=== PATIENT | female | born 1985 | race Two or more races ===

== ENCOUNTER 2017-01-08 22:17 | Emergency (ER) | payer MEDICAID ==
[~2017-01-08] VITALS: Ht 162.6 cm; Wt 54.4 kg
[2017-01-08 22:45] LABS: Basophils # (auto) 0.1 uL; Basophils % (auto) 0.6 % (0.0-2.0); CONDITION Y; Eosinophils # (auto) 0.2 uL; Eosinophils % (auto) 2.1 % (0.0-7.0); Hematocrit 35.7 % (36.0-46.0); Hemoglobin 11.9 g/dL (12.2-16.2); Lymphocytes % (auto) 38.7 % (10.0-50.0); Mean Corpuscular Hemoglobin 30.2 pg (28.0-32.0); Mean Corpuscular Hgb Conc. 33.3 g/dL (32.0-36.0); Mean Corpuscular Volume 90.6 fL (80.0-100.0); Mean Platelet Volume 8.7 fL (7.4-10.4); Monocytes # (auto) 0.7 uL; Monocytes % (auto) 7.2 % (0.0-12.0); Neutrophils # (auto) 5.4 uL; Neutrophils % (auto) 51.4 % (37.0-80.0); Platelet Count (auto) 262 10^3/uL (140-450); White Blood Cell 10.4 10^3/uL (4.4-10.8)
[2017-01-08 23:03] LABS: Albumin 3.6 g/dL (3.4-5.0); Anion Gap 10 (5-15); BUN/Creatinine Ratio 13.1; Blood Urea Nitrogen 11 mg/dL (7-18); Calcium 8.4 mg/dL (8.5-10.1); Carbon Dioxide 23 mmol/L (21-32); Chloride 115 mmol/L (98-107); GFR African American 102 mL/min; GFR Non-African American 84 mL/min; Glucose 97 mg/dL (74-106); Magnesium 2.4 mg/dL (1.6-2.6); Potassium 3.5 mmol/L (3.5-5.1); Sodium 148 mmol/L (136-145)
[2017-01-08 23:12] LABS: INR 0.95 (0.9-1.15); Prothrombin Time 10.4 sec (9.37-12.3)
[2017-01-08 23:15] LABS: Alkaline Phosphatase 61 U/L (45-117); Aspartate Aminotransferase 14 U/L (15-37); Bilirubin, Total 0.2 mg/dL (0.2-1.0); Total Protein 7.2 g/dL (6.4-8.2)
[2017-01-08 23:33] LABS: B-Type Natriuretic Peptide 11.66 pg/mL (0-100)
[2017-01-08 23:40] LABS: Temperature: 23.1 C (20.0-25.0)
[2017-01-09 00:19] LABS: Urine Bilirubin Negative (Negative); Urine Color Yellow (Yellow); Urine Glucose Normal (Normal); Urine Ketone Negative (Negative); Urine Nitrite Negative (Negative); Urine RBC 2 /hpf (0 - 4); Urine Squamous Epithelial Cell FEW /hpf (<5); Urine Urobilinogen Normal (Negative)
[2017-01-09 00:20] LABS: Urine Blood 1+ /uL (Negative)
[2017-01-09 08:05] VITALS: BP 98/74
== END 2017-01-09 08:29 | disposition home or self-care (01) ==
LOC: ER 22:18
DX: R06.02 Shortness of breath (principal); E11.9 Type 2 diabetes mellitus without complications; N39.0 Urinary tract infection, site not specified; Z98.2 Presence of cerebrospinal fluid drainage device; Z85.841 Personal history of malignant neoplasm of brain
CPT/HCPCS: 36415; 70450; 71020; 80053; 80307; 81001; 83735; 83880; 84443; 84484; 84702; 85025; 85379; 85610; 85730; 93005

== ENCOUNTER 2018-06-04 11:00 | Emergency (ER) | payer MEDICAID ==
[~2018-06-04] VITALS: Ht 165.1 cm; Wt 53.1 kg
[2018-06-04] MEDS ORDERED: ACETAMINOPHEN 500 MG TAB PO ONE (11:15)
[2018-06-04 11:39] LABS: Urine Bacteria NONE SEEN /hpf (None Seen); Urine Blood 2+ /uL (Negative); Urine Mucus FEW (None Seen); Urine Specific Gravity 1.009 (1.001-1.035); Urine WBC 2 /hpf (0 - 5)
[2018-06-04 12:09] LABS: Basophils # (auto) 0 uL; Basophils % (auto) 0.4 % (0.0-2.0); Eosinophils # (auto) 0.1 uL; Eosinophils % (auto) 0.5 % (0.0-7.0); Hematocrit 43.8 % (36.0-46.0); Hemoglobin 14.7 g/dL (12.2-16.2); Lymphocytes % (auto) 17.8 % (10.0-50.0); Mean Corpuscular Hemoglobin 30.4 pg (28.0-32.0); Mean Corpuscular Hgb Conc. 33.5 g/dL (32.0-36.0); Mean Corpuscular Volume 90.7 fL (80.0-100.0); Monocytes # (auto) 1.2 uL; Neutrophils # (auto) 7.9 uL; Neutrophils % (auto) 70.3 % (37.0-80.0); Platelet Count (auto) 247 10^3/uL (140-450); Red Blood Cells 4.83 10^6/uL (4.0-5.20); Red Cell Distribution Width 14.2 % (11.8-14.3); White Blood Cell 11.3 10^3/uL (4.4-10.8)
[2018-06-04 12:31] LABS: Albumin 3.9 g/dL (3.4-5.0); Calcium 8.7 mg/dL (8.5-10.1); Potassium 3.5 mmol/L (3.5-5.1)
[2018-06-04 12:35] LABS: BUN/Creatinine Ratio 15.8; Bilirubin, Total 0.7 mg/dL (0.2-1.0); Total Protein 8.1 g/dL (6.4-8.2)
[2018-06-04] MEDS ORDERED: SODIUM CHLORIDE 0.9% 1,000 ML IVB ONE (12:35)
[2018-06-04] MEDS ORDERED: cefTRIAXone 1GM/50ML D5W 50 ML IV ONE (12:45)
[2018-06-04 15:30] VITALS: BP 89/53
== END 2018-06-04 16:14 | disposition home or self-care (01) ==
LOC: ER 11:00
DX: R50.9 Fever, unspecified (principal); N39.0 Urinary tract infection, site not specified; E11.22 Type 2 diabetes mellitus with diabetic chronic kidney disease; N18.3 Chronic kidney disease, stage 3 (moderate); Z85.841 Personal history of malignant neoplasm of brain; Z32.02 Encounter for pregnancy test, result negative
CPT/HCPCS: 36415; 71046; 80053; 81001; 81025; 83605; 85025; 87040; 96365; 99284; J0696; J7030

== ENCOUNTER 2020-12-30 10:19 | Emergency (ER) | payer MEDICAID ==
[~2020-12-30] VITALS: Ht 162.6 cm; Wt 49.9 kg
[2020-12-30 12:55] VITALS: BP 109/52
[2020-12-30] MEDS ORDERED: ACETAMINOPHEN/CODEINE#3 (300/30mg) TAB PO ONE (14:15)
== END 2020-12-30 14:46 | disposition home or self-care (01) ==
LOC: ER 10:19
DX: G51.0 Bell's palsy (principal)
CPT/HCPCS: 70486

== ENCOUNTER 2021-09-05 14:00 | Outpatient (CLI) | payer MEDICAID ==
[~2021-09-05] VITALS: Ht 162.6 cm; Wt 54.4 kg
[2021-09-05 14:35] LABS: Basophils # (auto) 0.1 10 ^3/uL (0-0.2); Basophils % (auto) 0.9 % (0.0-2.0); Eosinophils # (auto) 0.2 10 ^3/uL (0-0.8); Eosinophils % (auto) 2.6 % (0.0-7.0); Hematocrit 37.5 % (36.0-46.0); Hemoglobin 12.7 g/dL (12.2-16.2); Lymphocytes # (auto) 2.9 10 ^3/uL (0.4-5.4); Mean Corpuscular Hemoglobin 30.5 pg (28.0-32.0); Mean Corpuscular Volume 89.8 fL (80.0-100.0); Monocytes # (auto) 0.6 10 ^3/uL (0-1.3); Monocytes % (auto) 8.2 % (0.0-12.0); Neutrophils % (auto) 51.3 % (37.0-80.0); Nucleated Red Blood Cells % 0.1 %; Red Blood Cells 4.18 10^6/uL (4.0-5.20); Red Cell Distribution Width 13.1 % (11.8-14.3); White Blood Cell 7.9 10^3/uL (4.4-10.8)
[2021-09-05 14:42] LABS: Potassium 3.9 mmol/L (3.5-5.1)
[2021-09-05 14:46] LABS: Albumin 3.8 g/dL (3.4-5.0); BUN/Creatinine Ratio 17.6; Calcium 9.2 mg/dL (8.5-10.1)
[2021-09-05 14:49] LABS: Bilirubin, Total 0.3 mg/dL (0.2-1.0); Total Protein 7.5 g/dL (6.4-8.2)
[2021-09-05 15:03] LABS: INR 1.01 (0.9-1.15); Partial Thromboplastin Time 26.3 sec (23.6-33.0)
[2021-09-08] MEDS ORDERED: HYDR5TAB PO (08:33)
[2021-09-08] MEDS ORDERED: [UNRECOGNIZED DRUG - CODE] PO (08:33)
[2021-09-08] MEDS ORDERED: LEVO88TA4 PO (08:33)
== END 2021-09-05 14:30 | disposition home or self-care (01) ==
LOC: LAB 14:00 → EDSTATUS 09-10 09:22
PROVIDERS: ATTEND Internal Medicine Gastroenterology
DX: U07.1 COVID-19 (principal); Z01.812 Encounter for preprocedural laboratory examination; K21.9 Gastro-esophageal reflux disease without esophagitis; E03.9 Hypothyroidism, unspecified
CPT/HCPCS: 36415; 80053; 85025; 85610; 85730; U0003

== ENCOUNTER → 2021-10-15 | Day surgery (SDC) | payer MEDICAID ==
[2021-10-13 12:30] LABS: Basophils # (auto) 0.1 10 ^3/uL (0-0.2); Basophils % (auto) 0.7 % (0.0-2.0); Eosinophils # (auto) 0.1 10 ^3/uL (0-0.8); Eosinophils % (auto) 1.4 % (0.0-7.0); Hematocrit 37.4 % (36.0-46.0); Hemoglobin 12.7 g/dL (12.2-16.2); Lymphocytes # (auto) 2.4 10 ^3/uL (0.4-5.4); Lymphocytes % (auto) 32.3 % (10.0-50.0); Mean Corpuscular Hemoglobin 29.9 pg (28.0-32.0); Mean Corpuscular Volume 87.9 fL (80.0-100.0); Monocytes # (auto) 0.4 10 ^3/uL (0-1.3); Monocytes % (auto) 4.8 % (0.0-12.0); Neutrophils # (auto) 4.6 10 ^3/uL (1.6-8.6); Neutrophils % (auto) 60.8 % (37.0-80.0); Red Blood Cells 4.25 10^6/uL (4.0-5.20); Red Cell Distribution Width 13.4 % (11.8-14.3); White Blood Cell 7.5 10^3/uL (4.4-10.8)
[2021-10-13 12:44] LABS: Potassium 3.7 mmol/L (3.5-5.1)
[2021-10-13 12:46] LABS: Partial Thromboplastin Time 27.1 sec (23.6-33.0)
[2021-10-13 12:52] LABS: Albumin 3.6 g/dL (3.4-5.0); BUN/Creatinine Ratio 15.5; Bilirubin, Total 0.4 mg/dL (0.2-1.0); Calcium 9.1 mg/dL (8.5-10.1); Total Protein 7.3 g/dL (6.4-8.2)
[~2021-10-15] VITALS: Ht 162.6 cm; Wt 54.4 kg
[~2021-10-15] MED LIST: HYDR5TAB PO; LEVO88TA4 PO; LIDOCAINE VISCOUS 2% 15ML UD ONE; MIDAZOLAM HCL 5 MG/ML-1ML VIAL ONE; [UNRECOGNIZED DRUG - CODE] PO; fentaNYL CITRATE 100 MCG/2 ML VL ONE
[2021-10-15] MEDS: diphenhdrAMINE HCL 50 MG/1 ML VL ONE ×2 (13:01→13:04)
[2021-10-15 13:50] VITALS: BP 91/59
== END | disposition home or self-care (01) ==
LOC: GI 12:34
PROVIDERS: ATTEND Internal Medicine Gastroenterology
DX: R10.13 Epigastric pain (principal); K21.00 Gastro-esophageal reflux disease with esophagitis, without bleeding; K44.9 Diaphragmatic hernia without obstruction or gangrene; K29.50 Unspecified chronic gastritis without bleeding; K22.70 Barrett's esophagus without dysplasia; K29.90 Gastroduodenitis, unspecified, without bleeding; K31.89 Other diseases of stomach and duodenum; E03.9 Hypothyroidism, unspecified; Z90.49 Acquired absence of other specified parts of digestive tract; Z98.890 Other specified postprocedural states; Z79.899 Other long term (current) drug therapy; Z83.3 Family history of diabetes mellitus; Z20.822 Contact with and (suspected) exposure to COVID-19
CPT/HCPCS: 36415; 43239; 80053; 81025; 82962; 84702; 85025; 85610; 85730; 88305; 88312; 88342; J1200; J2250; J3010; J7030; U0003; 99152

== ENCOUNTER → 2022-04-21 | Outpatient (CLI) | payer MEDICAID ==
[~2022-04-21] MED LIST changes: -LIDOCAINE VISCOUS 2% 15ML UD ONE; -MIDAZOLAM HCL 5 MG/ML-1ML VIAL ONE; -fentaNYL CITRATE 100 MCG/2 ML VL ONE
[2022-04-21 08:52] LABS: Basophils # (auto) 0.1 10 ^3/uL (0-0.2); Basophils % (auto) 0.7 % (0.0-2.0); Eosinophils # (auto) 0.2 10 ^3/uL (0-0.8); Eosinophils % (auto) 2.2 % (0.0-7.0); Hematocrit 37.8 % (36.0-46.0); Hemoglobin 12.6 g/dL (12.2-16.2); Lymphocytes # (auto) 2.8 10 ^3/uL (0.4-5.4); Lymphocytes % (auto) 29.4 % (10.0-50.0); Mean Corpuscular Hemoglobin 30.3 pg (28.0-32.0); Mean Corpuscular Hgb Conc. 33.2 g/dL (32.0-36.0); Mean Corpuscular Volume 91.2 fL (80.0-100.0); Monocytes # (auto) 0.7 10 ^3/uL (0-1.3); Monocytes % (auto) 7.2 % (0.0-12.0); Neutrophils # (auto) 5.7 10 ^3/uL (1.6-8.6); Neutrophils % (auto) 60.5 % (37.0-80.0); Red Blood Cells 4.14 10^6/uL (4.0-5.20); Red Cell Distribution Width 13.9 % (11.8-14.3); White Blood Cell 9.3 10^3/uL (4.4-10.8)
[2022-04-21 09:11] LABS: Albumin 3.8 g/dL (3.4-5.0); Calcium 8.8 mg/dL (8.5-10.1); Potassium 4.1 mmol/L (3.5-5.1)
[2022-04-21 09:15] LABS: BUN/Creatinine Ratio 15.9; Bilirubin, Total 0.6 mg/dL (0.2-1.0); Total Protein 7.6 g/dL (6.4-8.2)
== END | disposition home or self-care (01) ==
LOC: LAB 08:26
PROVIDERS: ATTEND Internal Medicine
DX: E23.0 Hypopituitarism (principal); M35.00 Sjogren syndrome, unspecified
CPT/HCPCS: 36415; 80053; 85025; 85652

== ENCOUNTER → 2022-06-08 | Outpatient (CLI) | payer MEDICAID ==
[2022-06-08 10:41] LABS: Albumin 3.8 g/dL (3.4-5.0); Basophils # (auto) 0.1 10 ^3/uL (0-0.2); Basophils % (auto) 0.9 % (0.0-2.0); Calcium 9.6 mg/dL (8.5-10.1); Eosinophils # (auto) 0.2 10 ^3/uL (0-0.8); Hematocrit 37.7 % (36.0-46.0); Hemoglobin 12.8 g/dL (12.2-16.2); Lymphocytes # (auto) 2.3 10 ^3/uL (0.4-5.4); Lymphocytes % (auto) 28.8 % (10.0-50.0); Mean Corpuscular Hemoglobin 30.6 pg (28.0-32.0); Mean Corpuscular Hgb Conc. 34.1 g/dL (32.0-36.0); Mean Corpuscular Volume 89.7 fL (80.0-100.0); Monocytes # (auto) 0.4 10 ^3/uL (0-1.3); Monocytes % (auto) 4.8 % (0.0-12.0); Neutrophils # (auto) 5.1 10 ^3/uL (1.6-8.6); Neutrophils % (auto) 63.5 % (37.0-80.0); Nucleated Red Blood Cells % 0.1 %; Red Cell Distribution Width 13.7 % (11.8-14.3)
[2022-06-08 10:53] LABS: BUN/Creatinine Ratio 16.9; Bilirubin, Total 0.2 mg/dL (0.2-1.0); Total Protein 7.5 g/dL (6.4-8.2)
== END | disposition home or self-care (01) ==
LOC: LAB 09:53
PROVIDERS: ATTEND Internal Medicine Endocrinology, Diabetes & Metabolism
DX: E23.0 Hypopituitarism (principal); D64.9 Anemia, unspecified
CPT/HCPCS: 36415; 80053; 84439; 85025

== ENCOUNTER 2024-12-18 07:20 | Outpatient (CLI) | payer MEDICAID ==
[~2024-12-18 07:20] MED LIST changes: +DESM0.2T17 PO; -[UNRECOGNIZED DRUG - CODE] PO
[2024-12-18 07:43] LABS: Urine Bacteria None Seen /hpf (None Seen)
[2024-12-18 08:00] LABS: Basophils # (auto) 0.1 10 ^3/uL (0-0.2); Eosinophils # (auto) 0.1 10 ^3/uL (0-0.8); Eosinophils % (auto) 1.9 % (0.0-7.0); Hematocrit 37.1 % (36.0-46.0); Hemoglobin 12.7 g/dL (12.2-16.2); Lymphocytes # (auto) 3.1 10 ^3/uL (0.4-5.4); Mean Corpuscular Hemoglobin 30.2 pg (28.0-32.0); Mean Corpuscular Hgb Conc. 34.3 g/dL (32.0-36.0); Mean Corpuscular Volume 88.2 fL (80.0-100.0); Monocytes # (auto) 0.5 10 ^3/uL (0-1.3); Monocytes % (auto) 6.1 % (0.0-12.0); Neutrophils # (auto) 4.2 10 ^3/uL (1.6-8.6); Platelet Count (auto) 236 10^3/uL (140-450); Red Blood Cells 4.21 10^6/uL (4.0-5.20); Red Cell Distribution Width 13.8 % (11.8-14.3)
[2024-12-18 08:07] LABS: Urine Blood 2+ /uL (Negative); Urine Clarity Clear (Clear); Urine Color Light-Yellow (Yellow); Urine Protein, UAD Negative (Negative); Urine Specific Gravity 1.016 (1.001-1.035); Urine Squamous Epithelial Cell FEW /hpf (<5); Urine Urobilinogen Normal (Negative); Urine WBC 3 /HPF (0-5); Urine pH 5.5 (5.0-9.0)
[2024-12-18 08:45] LABS: Alanine Aminotransferase 18 U/L (7-40); Albumin 4.5 g/dL (3.2-4.8); Alkaline Phosphatase 57 U/L (46-116); Anion Gap 10 (5-15); Aspartate Aminotransferase 14 U/L (<34); BUN/Creatinine Ratio 13.3 (10.0-20.0); Blood Urea Nitrogen 10 mg/dL (9-23); Calcium 9.8 mg/dL (8.7-10.4); Carbon Dioxide 26 mmol/L (20-31); Cholesterol 174 mg/dL (< 200); Glucose 87 mg/dL (74-106); Sodium 145 mmol/L (136-145); Total Protein 7.1 g/dL (5.7-8.2); Triglycerides 87 mg/dL (< 150)
[2024-12-18 08:46] LABS: Bilirubin, Total 0.4 mg/dL (0.2-1.0); HDL Cholesterol 49 mg/dL (40-59)
[2024-12-18 08:47] LABS: Chloride 109 mmol/L (98-107); LDL Cholesterol 116 mg/dL (< 100)
[2024-12-18 09:09] LABS: Uric Acid 5.3 mg/dL (3.1-7.8)
[2024-12-19 08:07] LABS: Anti-Nuclear Antibody Direct Positive (Negative); Anti-dsDNA Antibody 13 IU/mL (0-9); Antiscleroderma-70 Antibody <0.2 AI (0.0-0.9); Complement C3 126 mg/dL (82-167); RNP Antibody <0.2 AI (0.0-0.9); Rheumatoid Arthritis Factor 23.5 IU/mL (<14.0); Sjogren's Anti-SS-A Antibody <0.2 AI (0.0-0.9); Sjogren's Anti-SS-B Antibody 1.5 AI (0.0-0.9); Smith Antibody <0.2 AI (0.0-0.9); Thyroid Peroxidase (TPO) Ab 10 IU/mL (0-34)
[2024-12-20 08:07] LABS: Antiparietal Cell Antibody 1.5 Units (0.0-20.0)
[2024-12-20 13:07] LABS: Actin (Smooth Muscle) Antibody 4 Units (0-19); Mitochondrial (M2) Antibody <20.0 Units (0.0-20.0)
== END 2024-12-18 17:00 | disposition home or self-care (01) ==
LOC: LAB 07:20
PROVIDERS: ATTEND Internal Medicine
DX: M35.00 Sjogren syndrome, unspecified (principal); G93.89 Other specified disorders of brain; E23.2 Diabetes insipidus; E23.0 Hypopituitarism; Z85.41 Personal history of malignant neoplasm of cervix uteri; Z79.899 Other long term (current) drug therapy
CPT/HCPCS: 36415; 80053; 80061; 81001; 83036; 84443; 84550; 85025; 86160; 86225; 86235; 86376; 86431

== ENCOUNTER 2025-04-02 22:20 | Emergency (ER) | payer MEDICAID ==
[~2025-04-02] VITALS: Ht 165.1 cm; Wt 58.1 kg
[2025-04-02 22:27] VITALS: BP 106/76; PULSE 75; RESP 18; TEMP 97.5; O2SAT 98
--- NOTE | 2025-04-02 23:01 | ED.PDOC ---
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 Patient reports that the dizziness started yesterday suddenly and is continuous, not associated ambulation or movement of the head, also reports headache which is left-sided and occipital associated photophobia, phonophobia, she denies history of migraines, per sister, patient has been running into things and has been having blurred vision. Per sister, last MRI was more than 6 months ago, results unknown , denies shortness of breaths, chest pain, palpitations Denies smoking, drinking, drug use Home medications: Levothyroxine, hydrocortisone, desmopressin Chief Complaint: Dizziness Time Seen by MD: 22:28 Primary Care Provider: TRENA Askew Notes: Nurses Notes Information Source: Patient, Relative Mode of Arrival: Ambulatory Past Medical History PAST MEDICAL HISTORY: Cancer, Gallstones Past Medical History (Other): Pilocytic astrocytoma craniotomy, hypothyroidism, diabetes insipidus EXTENSION CLERK History: No Pertinent EXTENSION CLERK History Family History Family History: Unobtainable Social History Smoker: Non-Smoker Alcohol: Denies ETOH Use Drugs: Denies Drug Use Lives In: Home Constitutional: denies: chills, diaphoresis, fatigue, fever, malaise, sweats, weakness, others EENTM: reports: blurred vision, double vision, photophobia Respiratory: denies: cough, hemoptysis, orthopnea, SOB at rest, shortness of breath, SOB with excertion, stridor, wheezing, others Cardiovascular: reports: dizzy spells Gastrointestinal: denies: abdomen distended, abdominal pain, blood streaked bowels, constipated, diarrhea, dysphagia, difficulty swallowing, hematemesis, melena, nausea, poor appetite, poor fluid intake, rectal bleeding, rectal pain, vomiting, others Genitourinary: denies: abnormal vagina bleeding, burning, dyspareunia, dysuria, flank pain, frequency, hematuria, incontinence, pain, , vagina discharge, urgency, others Neurological: reports: dizziness, fainting; denies: headache, left sided numbness, left sided weakness, numbness, paresthesia, pre-existing deficit, right sided numbness, right sided weakness, seizure, speech problems, tingling, tremors, weakness, others Musculoskeletal: denies: back pain, gout, joint pain, joint swelling, muscle pain, muscle stiffness, neck pain, others Integumetry: denies: bruises, change in color, change in hair/nails, dryness, laceration, lesions, lumps, rash, wounds, others Allergic/Immunocompromised: denies: Difficulty Healing, Frequent Infections, Hives, Itching, others Hematologic/Lymphatic: denies: anemia, blood clots, easy bleeding, easy bruising, swollen glands, others Endocrine: denies: excessive hunger, excessive sweating, excessive thirst, excessive urination, flushing, intolerance to cold, intolerance to heat, unexplained weight gain, unexplained weight loss, others Psychiatric: denies: anxiety, bipolar disorder, depression, hopeless, panic disorder, schizophrenia, sleepless, suicidal, others Physical Exam General Appearance: No Apparent Distress, Normal HEENT: Normal ENT Inspection, Pharynx Normal, TMs Normal Neck: Full Range of Motion, Non-Tender, Normal, Normal Inspection Respiratory: Chest Non-Tender, Lungs Clear, No Accessory Muscle Use, No Respiratory Distress, Normal Breath Sounds Cardiovascular: No Edema, No JVD, No Murmur, No Gallop, Normal Peripheral Pulses, Regular Rate/Rhythm Breast Exam: Deferred Gastrointestinal: No Organomegaly, Non Tender, No Pulsatile Mass, Normal Bowel Sounds, Soft Genitalia: Deferred Pelvic: Deferred Rectal: Deferred Extremities: No calf tenderness, Normal capillary refill, Normal inspection, Normal range of motion, Non-tender, No pedal edema Musculoskeletal : Apperance: Normal Neurologic: Alert, auto dismantler II-XII nml as Tested, No Motor Deficits, Normal Affect, Normal Mood, No Sensory Deficits, Other (No facial asymmetry, no motor or sensory weakness. Peripheral vertigo andstrabismus left greater than right) Cerebellar Function: Normal Reflexes: Normal Skin: Dry, Normal Color, Warm Lymphatic: No Adenopathy Was a procedure done? Was a procedure done?: No Differential Diagnosis (SZ) Headache: Cluster, Migraine, Mass Lesion X-Ray, Labs, Meds, VS Vital Signs Date Time Temp Pulse Resp B/P (MAP) Pulse Ox O2 Delivery O2 Flow Rate FiO2 04/02/25 22:27 97.5 75 18 106/76 98 97.5 Time of 1ST Reevaluation: 23:00 Reevaluation 1ST: N/A Consultation: PCP Patient Education/Counseling: Diagnosis, Treatment, Prognosis, Need For Follow Up Family Education/Counseling: Diagnosis, Treatment, Prognosis, Need For Follow Up Departure 1 Departure Time of Disposition: 23:25 Impression: Primary Impression: Dizziness Disposition: 07 LEFT WITHOUT BEING SEEN Condition: Fair Additional Instructions: Patient left during ongoing medical management Critical Care Note Critical Care Time?: No Stability Stability form required: ABBI Eric RESIDENT Apr 02, 2025 23:01
[2025-04-02] MEDS ORDERED: MORPHINE SULFATE INJ 2 MG/ml SYRG IM ONE (23:15)
[2025-04-02] MEDS ORDERED: KETOROLAC TROMETH 30 MG/ML 1ML VIAL IM ONE (23:15)
== END 2025-04-03 03:51 | disposition left against medical advice (07) ==
LOC: ER 22:20
DX: R42 Dizziness and giddiness (principal); R51.9 Headache, unspecified; H53.8 Other visual disturbances; Z85.841 Personal history of malignant neoplasm of brain; Z98.890 Other specified postprocedural states

== ENCOUNTER 2025-04-03 08:22 | Outpatient (CLI) | payer MEDICAID ==
[2025-04-03 09:26] LABS: Hematocrit 40.2 % (36.0-46.0); Hemoglobin 13.8 g/dL (12.2-16.2); Mean Corpuscular Hemoglobin 30.7 pg (28.0-32.0); Mean Corpuscular Volume 89.4 fL (80.0-100.0); Nucleated Red Blood Cells % 0.1 %
[2025-04-03 09:37] LABS: Anion Gap 10 (5-15); Carbon Dioxide 27 mmol/L (20-31); Potassium 4.0 mmol/L (3.5-5.1)
[2025-04-03 09:39] LABS: Calcium 10.1 mg/dL (8.7-10.4)
[2025-04-03 09:41] LABS: Chloride 120 mmol/L (98-107); Sodium 157 mmol/L (136-145)
[2025-04-03 09:43] LABS: BUN/Creatinine Ratio 15.9 (10.0-20.0); Blood Urea Nitrogen 14 mg/dL (9-23); Glucose 93 mg/dL (74-106)
== END 2025-04-03 17:00 | disposition home or self-care (01) ==
LOC: LAB 08:22
DX: H47.20 Unspecified optic atrophy (principal)
CPT/HCPCS: 36415; 80048; 82607; 82746; 84207; 85025

== ENCOUNTER 2025-04-18 14:01 | Outpatient (CLI) | payer MEDICAID ==
[2025-04-18 14:45] LABS: Chloride 107 mmol/L (98-107); Potassium 4.0 mmol/L (3.5-5.1); Sodium 144 mmol/L (136-145)
[2025-04-18 14:46] LABS: Anion Gap 9 (5-15); Calcium 8.9 mg/dL (8.7-10.4); Carbon Dioxide 28 mmol/L (20-31)
[2025-04-18 14:51] LABS: BUN/Creatinine Ratio 11.8 (10.0-20.0); Blood Urea Nitrogen 10 mg/dL (9-23); Glucose 79 mg/dL (74-106)
== END 2025-04-19 17:00 | disposition home or self-care (01) ==
LOC: LAB 14:01
PROVIDERS: ATTEND Internal Medicine
DX: E87.0 Hyperosmolality and hypernatremia (principal)
CPT/HCPCS: 36415; 80048